=== PATIENT | male | born 1965 | race Caucasian/White ===

== ENCOUNTER 2017-01-28 08:40 | Day surgery (SDC) | payer BC ==
[~2017-01-28 08:40] MED LIST: Acetaminophen TAB* 325 MG PO ONE; Buffered Lidocaine 0.9% SYRIN* 5 ML/SYR SYRINGE INTRADERM ONE; Bupivacaine 0.5% SDV PF* 30 ML VIAL ONE; Dexamethasone IV* 4 MG/ML 1 ML (4 MG) IV SLOW PU ONE; Famotidine IV* 10 MG/ML 2 ML (20 mg) IV ONE; Lidocaine 1% INJ* 10 MG/ML 30 ML SDV ONE; ROPIVACAINE 5 MG/ML 30 ML BTL (0.5%) ONE
[2017-01-28] MEDS ORDERED: Acetaminophen TAB* 325 MG ONE ×2 (08:54→09:22)
[2017-01-28] MEDS ORDERED: ceFAZolin 2 GM PREMIX (*) 50 ML IVPB ONE (08:54)
[2017-01-28] MEDS ORDERED: Dexamethasone IV* 4 MG/ML 1 ML (4 MG) ONE (08:54)
[2017-01-28] MEDS ORDERED: Famotidine IV* 10 MG/ML 2 ML (20 mg) ONE (08:54)
[2017-01-28] MEDS ORDERED: Buffered Lidocaine 0.9% SYRIN* 5 ML/SYR SYRINGE ONE (08:55)
[2017-01-28] MEDS ORDERED: Midazolam* 1 MG/ML 2 ML VIAL (2 MG) ONE (09:01)
[2017-01-28] MEDS ORDERED: fentaNYL* 50 MCG/ML 2 ML VIAL (100 MCG VIAL) ONE (09:01)
[2017-01-28] MEDS ORDERED: Ondansetron INJ* 2 MG/ML VIAL ONE (09:02)
[2017-01-28] MEDS ORDERED: Lidocaine 2% PF * 5 ML VIAL ONE (09:02)
[2017-01-28] MEDS ORDERED: Propofol* 10 MG/ML 20 ML BTL IV PUSH ONE (09:02)
[2017-01-28] MEDS ORDERED: Ketorolac INJ* 30 MG/ML 1 ML VIAL ONE (09:02)
[2017-01-28] MEDS ORDERED: Rocuronium* 10 MG/ML VIAL ONE (09:06)
[2017-01-28] MEDS ORDERED: ceFAZolin 1 GM in Dextrose (*) 1 GM/50 ML BAG IVPB ONE (11:48)
[2017-01-28] MEDS ORDERED: Bupivacaine 0.25% SDV* 30 ML ONE (12:11)
[2017-01-28] MEDS ORDERED: oxyCODONE TAB* 5 MG TAB PO PRN (13:17)
[2017-01-28] MEDS ORDERED: DiMENhydriNATE IV* 50 MG/ML VIAL IV PUSH PRN (13:17)
[2017-01-28] MEDS ORDERED: HYDROmorphone INJ* 1 MG/ML CARPUJECT SYRINGE IV PRN (13:17)
[2017-01-28] MEDS ORDERED: Nalbuphine* 20 MG/ML 1 ML VIAL IV PRN (13:17)
[2017-01-28] MEDS ORDERED: fentaNYL* 50 MCG/ML 2 ML VIAL (100 MCG VIAL) IV PRN (13:17)
[2017-01-28] MEDS ORDERED: Ondansetron INJ* 2 MG/ML VIAL IV PRN (13:17)
[2017-01-28] MEDS ORDERED: Ketorolac INJ* 30 MG/ML 1 ML VIAL IV PRN (13:17)
[2017-01-28] MEDS ORDERED: Phenylephrine IV* 40 MCG/ML 10 ML SYRINGE ONE (14:42)
[2017-01-28 16:44] VITALS: BP 116/77
--- NOTE | 2017-01-31 06:21 | OP ---
OPERATIVE REPORT: DATE OF OPERATION: 01/28/17 DATE OF : 65 SURGEON: Shayy Reyes MD PROFESSIONAL VOLLEYBALL PLAYER: YASMANI Cervantes. ANESTHESIOLOGIST: Dr. Salud Whitlock. ANESTHESIA: General, interscalene block. PRE-OP DIAGNOSIS: Left shoulder rotator cuff tear with bicipital tendinitis and AC joint arthritis. POST-OP DIAGNOSIS: Left shoulder rotator cuff tear with bicipital tendinitis and AC joint arthritis. OPERATIVE PROCEDURE: Left shoulder arthroscopy with: 1. Glenohumeral debridement. 2. Subacromial decompression with acromioplasty. 3. Distal clavicle excision. 4. Rotator cuff repair. 5. Open biceps tendinosis. COMPLICATIONS: None. ESTIMATED BLOOD LOSS: Minimal. IMPLANTS USED: One 4.75 Healicoil and one multi-fix as well as one 2.8 mm Q- Fix. INDICATIONS FOR THE PROCEDURE: Kota Hollingsworth is a 51-year-old male who has had shoulder pain for several months. He has failed conservative management. He was diagnosed with a small full-thickness tear of the supraspinatus tendon as well as AC joint arthritis and bicipital tendinitis. He has failed conservative management. He is young and fairly healthy and he was recommended arthroscopic rotator cuff repair. He has elected to proceed with surgery. DESCRIPTION OF PROCEDURE: The patient was greeted in the preoperative area by the attending surgeon. Correct extremity was marked. Consent was confirmed. The patient was then brought back to the operating suite. He was placed in supine position on the operating table. Prior to coming to the OR, he underwent interscalene nerve block by the anesthesiologist in the preoperative area and he was then brought back to the operative suite. He was placed in supine position in the operating table. He underwent general anesthesia with endotracheal intubation after which the patient was carefully placed in the bilateral decubitus position with all bony prominences padded. He was supported with pegboard. His left arm was draped with 10 pounds of traction. The left shoulder was prepped and draped in usual sterile fashion, chlorhexidine soap, scrub, and alcohol wipe, and a final prep with ChloraPrep. After appropriate surgical pause indicating side, site, procedure, and administration of antibiotics, a standard posterolateral portal was made sharply with an 11 blade. The scope was introduced into the joint and the joint was examined. There were grade 0 to 1 changes in the glenohumeral joint. The anterior and posterior labrum were intact. The inferior recess was intact. The superior labrum had mild fraying as well as bicipital tendinitis was apparent. The anterior portal was made in outside-in fashion. The subscap was intact. The undersurface of the supraspinatus tendon had no obvious tear. Once the anterior portal was made, the biceps was then tenotomized for later tendinosis. The scope was positioned in subacromial space. The abundant bursa was then carefully removed. Lateral portal was made in outside-in fashion. The bursa was removed using the shaver. Electrocautery device was used to develop the undersurface of the acromion, exposed undersurface to skeletonize this. A rather large anterolateral spur was identified and this was removed using 4-0 oval mitchel and with peel back of the CA ligament. Attention was directed to the AC joint. There was obvious stenosis at the AC joint that was apparent. The mitchel was brought to the anterior portal and distal 8 mm of the clavicle were then carefully removed. The distal clavicle was visualized and carefully opened to remove at least 8 mm distally. All fluid and debris was removed and attention was directed to the rotator cuff. It was a full thickness as evidenced at the distal supraspinatus. This was carefully exposed using electrocautery and with shaver the cuff was then debrided back to allow for good bony bleeding edge. The greater tuberosity was also prepared in a similar fashion with mitchel, electrocautery device as well as a rasp to allow for good bony bleeding bed. A 4.75 Healicoil was placed in the medial row, the sutures were passed through the tendon in a horizontal mattress configuration. This was then tied down and the strands were then passed through multi-fix anchor in place laterally for lateral fixation. Final images were obtained. The cuff was repaired and appropriate compression was applied. All fluid and debris was removed. Attention was directed to the biceps. The bed was airplaned to the left side. The anterior aspect of the shoulder was prepped using ChloraPrep. The #15 blade was then used to make an incision in line with the biceps tendon. Soft tissues were carefully dissected and then electrocautery was used to maintain hemostasis. Once fascia was identified, the remainder of the dissection was done bluntly. The pec was identified and retracted superiorly. The bicipital groove was identified. The biceps was brought to the wound and a groove was prepped in the usual fashion with electrocautery, red ball rasp as well as osteotome to allow for bony bleeding bed. The Q-FIX anchor guide was then used to drill unicortically. Q-FIX was then deployed and secured with excellent purchase. The sutures were passed through the tendon approximately 1 cm proximal to musculotendinous junction in Addy Valentín type configuration. The excess stump was then excised and shuttled back into the wound to more secure it. The wound was copiously irrigated. The portals were closed with 3-0 nylon. The anterior wound was closed with 2-0 Vicryl and 3-0 Monocryl. Sterile dressing was applied. The anterior wound was injected with 20 cc of 0.25% Marcaine, a Cryo/Cuff , UltraSling was applied. He was awoken from anesthesia and transferred to the PACU in stable condition. POSTOPERATIVE PLAN: He will be nonweightbearing. He will be allowed elbow, hand and wrist range of motion. He will be discharged on pain medication, antibiotic, DVT prophylaxis considered but deferred due to no previous personal or family history. I will see the patient in 10 to 14 days. [id number]/[facility] #: [id number] KYLAH
== END 2017-01-28 17:04 | disposition home or self-care (01) ==
LOC: OR 08:40
PROVIDERS: ATTEND Orthopaedic Surgery
DX: M19.212 Secondary osteoarthritis, left shoulder (principal); M75.122 Complete rotator cuff tear or rupture of left shoulder, not specified as traumatic; M75.22 Bicipital tendinitis, left shoulder; I10 Essential (primary) hypertension; G47.33 Obstructive sleep apnea (adult) (pediatric); Z68.41 Body mass index [BMI] 40.0-44.9, adult
CPT/HCPCS: A9270-GY; C1713; C1776; J0690; J1100; J1885; J2001; J2250; J2405; J2704; J2795; J3010